=== PATIENT | male | born 1975 | race Caucasian/White ===

== ENCOUNTER 2021-04-24 04:06 | Emergency (ER) | payer OTHER, SELFPAY ==
[2021-04-24 04:10] VITALS: BP 127/83; PULSE 82; RESP 16; TEMP 36.6; O2SAT 95; BMI 29.5
[2021-04-24 04:56] LABS: COVID-19 Test Negative (Negative)
--- NOTE | 2021-04-24 06:24 | ED.URI ---
HPI - URI/Sore Throat General Chief Complaint: Upper Respiratory Symptoms Stated Complaint: COVID Symptoms Time Seen by Provider: 04/24/21 06:23 Source: patient Mode of arrival: ambulatory History of Present Illness HPI Narrative: 45-year-old male presents with request for COVID-19 testing as well as having symptoms nasal congestion, sore throat but denies any loss of taste or small and denies any fever, chills but has had a productive cough and is a current everyday smoker. Related Data Allergies Allergy/AdvReac Type Severity Reaction Status Date / Time Penicillins Allergy Intermediate Hives Verified 04/24/21 04:15 Review of Systems Review of Systems: Pertinent positives and negatives as stated in HPI 10 point review of systems is otherwise negative. [facility] Past Medical History Source: nursing notes reviewed Social History Social History Advance Directives: No Advance Directives Information Provided: Yes Physical Exam Vital Signs: Vital Signs: Last Vital Signs Temp 98 F 04/24/21 04:10 Pulse 82 04/24/21 04:10 Resp 16 04/24/21 04:10 BP 127/83 04/24/21 04:10 Pulse Ox 95 04/24/21 04:10 BMI result Body Mass Index 29.5 VITAL SIGNS: Reviewed. GENERAL: Well developed, well nourished, in no acute distress. HEAD: Normocephalic/atraumatic EYES: PERRLA, EOMI EARS: Ext canals without abnormality, TMs non-bulging and non-erythematous NOSE: Nares patent bilateral OROPHARYNX: no oral lesions noted, posterior pharynx clear and non-erythematous without noted tonsillar enlargement/erythema/exudates NECK: Supple, no adenopathy LUNGS: Normal breath sounds. No adventitious sounds or accessory muscle use. SpO2<95> CARDIOVASCULAR: Regular rate and rhythm without noted murmurs, ABDOMEN: Soft, non-tender, non-distended with bowel sounds. NEUROLOGIC: Alert and oriented x 4. Course Course Course Narrative: 45-year-old male with history and clinical presentation consistent with viral syndrome and on review he is COVID-19 negative. MDM - URI/Sore Throat Lab Data Labs: Lab Results 04/24/21 Range/Units 04:36 COVID-19 (KEILA) Negative (Negative) COVID-19 Clin Com See Note Discharge Plan Discharge Clinical Impression: Lab test negative for COVID-19 virus, Viral syndrome Patient Disposition: Home, Self-Care Instructions: Viral Syndrome (ED) Additional Instructions: 1. Your COVID-19 test was negative today. Continue take [id number] Tylenol/ ibuprofen as needed for body aches and temperatures greater than 100.4 as well as [id number] cough suppressant medication. Stand Alone Forms: Work/School Release
== END 2021-04-24 06:35 | disposition home or self-care (01) ==
PROVIDERS: Emergency Provider Student in an Organized Health Care Education/Training Program
DX: B34.9 Viral infection, unspecified (principal); Z20.822 Contact with and (suspected) exposure to COVID-19; F17.200 Nicotine dependence, unspecified, uncomplicated
CPT/HCPCS: 36415; 87635; 99283

== ENCOUNTER 2024-12-07 13:17 | Outpatient (AMB) | payer OTHER, SELFPAY ==
--- NOTE | 2024-12-07 13:21 | MHC.PC.OV ---
Vital Signs 12/07/24 13:35 Height 5 ft 7 in Weight 171 lb 6 oz BMI 26.8 BP 113/77 Blood Pressure Location Lt brachial Position Sitting Respiration 16 Pulse 76 Temp 97.7 F Temp Source Oral Pulse Oximetry (%) 97 Oxygen Delivery Method Room Air Intake Visit Reasons: exzema CPE Intake Note: patient here for new patient visit c/o eczema Claims Counsel Required: No Allergies Penicillins Allergy (Intermediate, Verified 12/07/24 13:41) Hives Medication List - Last Reconciled 12/07/24 by Khadijah Ralph CNP No Known Home Meds Tobacco use date assessed: 12/07/24 Dental Screening Dental Screen Date: 12/07/24 Did you have a dental visit in the last 12 months?: No Did you have a dental problem in the last 6 months where you did not have access to dental care?: No Was dental information given to patient?: Yes HPI HPI Comments History of Present Illness Details 49-year-old male presents to [facility] care. Prior PCP? - Over 20 years ago Last office visit/CPE/labs - [employer] [facility] [employer] Acute issue(s) - Eczema around both eyes, intermittent x 2 years, presents x few weeks - Reports painless lesion to his upper chest, below sternum; would sometimes bleed after he scratched it. Has been present for about a year Past Medical History - Eczema Surgical History - Surgical repair of left bicep in 2019 (incarcerated between 1161-6955) Family History - MGF: Alcohol abuse Social History - Smokes 1.5 pack cigarettes daily x 22 yrs (quit x 8 years while incarcerated). Does not vape. Does not drink alcohol. Smokes 2 joints of cannabis daily - Has been making healthy dietary choices. Active but does not exercise. Generally sleep well Health maintenance - Last eye exam was 6 years ago. Referred to Ophthalmology for routine eye exam - Last dental visit was 2 years ago; encouraged to schedule an appointment with his dentist for routine dental care - Last tetanus vaccine was 8 years ago while incarcerated. Record not currently available - Has not been vaccinated for the flu this season; declines vaccination PFSH Family History (Updated 12/07/24 @ 13:44 by Fariha Frank MA) Maternal Grandfather Alcohol abuse Maternal Grandmother Diabetes Mother Skin cancer Social History (Updated 12/07/24 @ 13:35 by Fariha Frank MA) Housing: Apartment Patient Tobacco Use Status: Current everyday Tobacco user Cigarette Packs Per Day: 2 Cigarettes Per Day: 30 e-Cigarette/Vaping Use: Never Used Second Hand Smoke Exposure: No Substance Use Type: Marijuana service: No Current occupational status: employed Current occupation: [employer] Current occupational exposures/hazards: Yes Cognitive needs: No Hearing needs: No Vision needs: No Questionnaire PHQ-9 Over the last 2 weeks, how often have you been bothered by any of the following problems? 1. Little interest or pleasure in doing things: not at all 2. Feeling down, depressed, or hopeless: not at all 3. Trouble falling or staying asleep, or sleeping too much: not at all 4. Feeling tired or having little energy: not at all 5. Poor appetite or overeating: not at all 6. Feeling bad about yourself - or that you are a failure or have let yourself or your family down: not at all 7. Trouble concentrating on things, such as reading the newspaper or watching television: not at all 8. Moving or speaking so slowly that other people could have noticed. Or the opposite - being so fidgety or restless that you have been moving around a lot more than usual: not at all 9. Thoughts that you would be better off or of hurting yourself in some way: not at all Total score: 0 Depression Screening Interpretation: Negative Depression Screening Done: Yes 96810 - PHQ-9 Billing: Yes Source: Developed by Drs. Toby Gooden, Kirstin Rojas, Adan Ojeda and colleagues, with an educational tanja from [employer]. Thrive Questionnaire Date Thrive assessed: 12/07/24 I am a: Patient What is your living situation today?: I have a steady place to live Within the past 12 months, did the food you bought not last and you didn't have the money to get more?: Never true Within the past 12 months, did you worry whether your food would run out before you got money to buy more?: Never true Do you have trouble paying for medicines?: No Do you have trouble getting transportation to medical appointments?: No Do you have trouble paying your heating and electricity bill?: No Do you have trouble taking care of your child, family member or friend?: No Do you have trouble with day-to-day activities such as bathing, preparing meals, shopping, managing finances, etc.?: No Are you currently unemployed and looking for a job?: No Are you interested in more education?: No Please select the resources that you would like help with: Food Currently or been in a relationship where the following occur: No concerns reported THRIVE Score: 0 AUDIT C Alcohol Use Questionnaire (AUDIT-C) 1. How often do you have a drink containing alcohol?: Never Total Score: 0 Score Reviewed/Action Taken: Yes ANGIE-7 AMB Questionnaire ANGIE-7 Date ANGIE - 7 assessed: 12/07/24 Feeling nervous, anxious, or on edge: 0 = Not at all Not being able to stop or control worryin = Not at all Worrying too much about different things: 0 = Not at all Trouble relaxin = Not at all Being so restless that it is hard to sit still: 0 = Not at all Becoming easily annoyed or irritable: 0 = Not at all Feeling afraid as if something awful might happen: 0 = Not at all Total ANGIE-7 score (0-4 normal; 5-9 mild; 10-14 moderate; 15-21 severe): 0 Source: Developed by Drs. Toby Gooden, Kirstin Rojas, Adan Ojeda and colleagues, with an educational tanja from [employer]. ANGIE-7 Assessment Billing ANGIE-7 Assessment Tool: ANGIE-7 Assessment 94774 Review of Systems Const Details: Denies chills, Denies fatigue, Denies fever(s), Denies headache(s) and Denies weakness HEENT Denies change in vision, Denies dizziness, Denies headache(s), Denies hearing loss, Denies nasal congestion, Denies sinus pain, Denies sinus pressure and Denies sore throat Card Denies chest pain, Denies lightheadedness, Denies dyspnea and Denies other (palpitations) Resp Denies cough, Denies dyspnea and Denies wheezing GI Denies abdominal pain, Denies melena, Denies hematochezia, Denies change in bowel habits, Denies dyspepsia and Denies nausea Denies hematuria and Denies dysuria Musc Denies abnormal gait, Denies myalgias, Denies arthralgias, Denies numbness and Denies tingling Skin/Breast Reports as per HPI Neuro Denies abnormal gait, Denies dizziness, Denies headache(s), Denies memory loss, Denies numbness, Denies Sensory deficit (Neuro), Denies tingling and Denies weakness Psych Denies anxiety, Denies depression and Denies memory loss Endo Denies cold intolerance, Denies fatigue, Denies heat intolerance, Denies polydipsia and Denies polyuria Noble/Lymph Denies easy bleeding and Denies easy bruising Aller/Immun Denies wheezing Physical exam (Primary Care) Vital Signs: Last Vital Signs Temp 97.7 F 12/07/24 13:35 Pulse 76 12/07/24 13:35 Resp 16 12/07/24 13:35 BP 113/77 12/07/24 13:35 Pulse Ox 97 12/07/24 13:35 Oxygen Delivery Method Room Air 12/07/24 13:35 BMI result Body Mass Index 26.8 Tobacco/Smoking Status: Tobacco use Status Tobacco use date assessed 12/07/24 12/07/24 13:35 Patient Tobacco Use Status Current everyday Tobacco 12/07/24 13:35 e-Cigarette/Vaping Use Never Used 12/07/24 13:35 PHQ-9: PHQ-9 Score PHQ-9: Total score 0 12/07/24 14:22 Depression Screening Interpretation: Negative Thrive Assessment: Date of Thrive Assessment Date Thrive assessed 12/07/24 12/07/24 13:28 Currently or been in a relationship where the following occur: No concerns reported Const Other: General: no acute distress, well developed, alert and awake Nutritional Appearance: well nourished Orientation/consciousness: patient oriented x3 HENMT Head: Yes normocephalic and Yes atraumatic Ears: hearing grossly normal bilaterally and TM's normal bilaterally General nose exam: Normal external nose present and Normal nares present Mouth: Normal oral and palatal mucosa present and moist mucous membranes Teeth and gingiva: dentition normal Throat: Yes oropharynx normal Eyes Pupils: Equal, round and reactive pupils present and Pupil accommodation reflex normal EOM: EOMs intact bilaterally Neck Neck: Yes normal visual inspection, Yes no lymphadenopathy and Yes trachea midline Thyroid: Thyroid normal Carotids: no bruits Lymphatic: no lymphadenopathy noted Chest Chest palpation & inspection: normal inspection of the chest Resp Effort & Inspection: normal respiratory effort Auscultation: clear to auscultation bilaterally Cardio Rate: regular rate Rhythm: regular rhythm Heart sounds: S1 normal heart sound present, S2 normal heart sound present, no gallops, no murmurs and no rubs Bruits: no abdominal aortic bruits and no carotid bruits GI Palpation (GI): No Abdominal aortic bruit present, Soft to palpation, nontender, No hepatosplenomegaly present and No Rebound tenderness present Auscultation: normal bowel sounds General: Yes no CVA tenderness Back/Spine/Pelvis Back: no CVA tenderness Cervical Spine: cervical ROM normal and No Cervical spine tenderness Thoracic/Lumbar Spine: thoraco-lumbar ROM normal, No pain with thoraco-lumbar ROM, No thoracic spinal tenderness and No lumbar spinal tenderness Skin General: warm and dry. Normal skin color. Normal skin turgor Lesions: Approx. 0.2 cm, painless, round, firm, mobile lesion with white head and surrounding erythema to the right upper chest below the sternum; skin normal to touch Rashes: Red patches around the eyes, consistent with eczema Trauma: no lacerations or abrasions Wounds: no wounds Nails: normal Neuro General: patient oriented x3, gait normal and CN's II-XI intact bilaterally Cranial nerves: Yes Equal, round and reactive pupils present Cognition (Neuro): normal cognition Gait exam (Neuro): Normal gait present Motor exam (neuro): 5/5 motor strength present throughout Sensory Exam: No Sensory deficit (Neuro) Deep tendon reflexes (DTR's): Right patellar reflex intensity grade: 2+ and Left patellar reflex intensity grade: 2+ Extrem General: Yes normal to inspection, No edema and No calf tenderness Psych Appearance: grossly normal Affect: normal affect Attitude: cooperative Thought process: Normal thought process present Coding Level of Care Code New Pt Level 4 (86523) New Pt Prev Care 40-64y(73118) Diagnoses Normal physical examination, routine Z00.00 Eczema of face L30.9 Skin lesion L98.9 Eye exam, routine Z01.00 Smoking greater than 20 pack years F17.210 Laboratory tests ordered as part of a complete physical exam (CPE) Z00.00 Additional Codes ANGIE-7 Assessment Billing - ANGIE-7 Assessment Tool: ANGIE-7 Assessment 62977 ([id number]) PHQ-9 - 90711 - PHQ-9 Billing: Yes ([id number]) Time Spent (min) 60 Assessment & Plan Assessment & Plan (1) Normal physical examination, routine: Code(s): Z00.00 - Encounter for general adult medical examination without abnormal findings Category: Medical Plan: No significant functional limitation noted. Healthy diet and routine exercise encouraged. Perform lab work and follow-up for a telehealth visit in 2-4 weeks. Return sooner with symptoms or concerns. Verbalized understanding and agreed with the plan. (2) Eczema of face: Code(s): L30.9 - Dermatitis, unspecified Category: Medical Plan: Red patches around the eyes, consistent with eczema. Betamethasone cream ordered twice daily; advised to apply around the patches as prescribed. Avoid applying directly to the eyes. Follow-up with worsening or new signs and symptoms. Verbalized understanding and agreed with the plan. (3) Skin lesion: Code(s): L98.9 - Disorder of the skin and subcutaneous tissue, unspecified Category: Medical Plan: Approx. 0.2 cm, painless, round, firm, mobile lesion with white head and surrounding erythema to the right upper chest below the sternum. Skin normal to touch. Likely an abscess. Doxycycline 100 mg daily x 10 days ordered; advised to take as prescribed. Warm/cool compresses encouraged. Follow-up with worsening or new signs and symptoms. Verbalized understanding and agreed with the plan. (4) Eye exam, routine: Code(s): Z01.00 - Encounter for examination of eyes and vision without abnormal findings Category: Medical Plan: Last eye exam was 6 years ago. Referred to Ophthalmology for routine eye exam. (5) Smoking greater than 20 pack years: Code(s): F17.210 - Nicotine dependence, cigarettes, uncomplicated Category: Social Hx Plan: He smokes 1.5 pack cigarettes daily x 22 yrs (quit x 8 years while incarcerated). Instructed on the health risks and complications of smoking cigarettes and cessation encouraged. Declines medication treatment for smoking cessation. Referred to pulmonology for LDCT. Follow-up as needed. Verbalized understanding and agreed with the plan. (6) Laboratory tests ordered as part of a complete physical exam (CPE): Code(s): Z00.00 - Encounter for general adult medical examination without abnormal findings Category: Medical Plan: Fasting labs ordered as part of a complete physical exam. Advised to fast for at least 10 hours before getting labs drawn. May drink water Verbalized understanding and agreed with treatment plan. Plan Total time for this visit was 60 minutes. This include 45 minutes with patient, performing complete physical exam and chronic disease management/treatment, and 15 minutes reviewing, coordinating plan of care, and documenting. Orders: Orders Lipid Panel Today Z00.00 - Encounter for general adult medical examination without abnormal findings Microalbumin, Random (w Creat) Today Z00.00 - Encounter for general adult medical examination without abnormal findings PSA, Ultra Sensitive Today Z00.00 - Encounter for general adult medical examination without abnormal findings UA CC w/rflx Micro + Cult Today Z00.00 - Encounter for general adult medical examination without abnormal findings Complete Blood Count Auto Diff Today Z00.00 - Encounter for general adult medical examination without abnormal findings Comprehensive [place]. Panel Fast Today Z00.00 - Encounter for general adult medical examination without abnormal findings TSH reflex Free T4 Today Z00.00 - Encounter for general adult medical examination without abnormal findings Vitamin D 25-OH Total Today Z00.00 - Encounter for general adult medical examination without abnormal findings Referrals Ophthalmology Referral Z01.00 - Encounter for examination of eyes and vision without abnormal findings Lung Cancer Screening Referral F17.210 - Nicotine dependence, cigarettes, uncomplicated Medications: New doxycycline hyclate 100 mg PO DAILY 10 tabs 0RF 10 days betamethasone valerate 0.1% 1 appl topical BID PRN 15 grams 2RF skin irritation
[2024-12-07 13:35] VITALS: BP 113/77; PULSE 76; RESP 16; TEMP 36.5; O2SAT 97; BMI 26.8
== END 2024-12-07 14:05 | disposition home or self-care (01) ==
PROVIDERS: PCP Nurse Practitioner Family; Visit Provider Nurse Practitioner Family
DX: Z00.00 Encounter for general adult medical examination without abnormal findings (principal); L30.9 Dermatitis, unspecified; L98.9 Disorder of the skin and subcutaneous tissue, unspecified; Z01.00 Encounter for examination of eyes and vision without abnormal findings; F17.210 Nicotine dependence, cigarettes, uncomplicated

== ENCOUNTER → 2024-12-07 13:17 | Outpatient (BNVA) | payer OTHER, SELFPAY | PROVIDERS: PCP Nurse Practitioner Family; Visit Provider Nurse Practitioner Family | DX: Z00.00 Encounter for general adult medical examination without abnormal findings (principal); L30.9 Dermatitis, unspecified; L98.9 Disorder of the skin and subcutaneous tissue, unspecified; F17.210 Nicotine dependence, cigarettes, uncomplicated; Z13.31 Encounter for screening for depression; Z13.39 Encounter for screening examination for other mental health and behavioral disorders | CPT/HCPCS: 96127; 99202; 99386 ==